=== PATIENT | female | born 1980 | race Caucasian/White ===

== ENCOUNTER 2016-08-07 16:51 | Emergency (ER) | payer BC ==
--- NOTE | 2016-08-07 17:57 | ER Document Report ---
ED Medical Screen (RME) - General Chief Complaint: Near Syncope Stated Complaint: HEART RATE PROBLEM Mode of Arrival: Ambulatory Information source: Patient Notes: Patient presents to the emergency department with reports of rapid heart rate feeling shaky and almost passing out for the past week. Patient is estimated due date is October 23. . TRAVEL OUTSIDE OF THE [place] IN LAST 30 DAYS: No - Related Data Allergies/Adverse Reactions: No Known Allergies Allergy (Unverified 08/07/16 17:56)
[2016-08-07 18:23] LABS: ABSOLUTE LYMPHOCYTES (AUTO) 1.8 10^3/uL (0.5-4.7); ABSOLUTE MONOCYTES (AUTO) 1.1 10^3/uL (0.1-1.4); ABSOLUTE NEUT (AUTO) 8.5 10^3/uL (1.7-8.2); BASOPHILS % (AUTO) 0.2 % (0-2); EOSINOPHILS % (AUTO) 0.3 % (0-6); HEMATOCRIT 34.3 % (36.0-47.0); HGB HCT DIFFERENCE -1.3; LYMPHOCYTES % (AUTO) 15.8 % (13-45); MEAN CORPUSCULAR HEMOGLOBIN 26.8 pg (27.0-33.4); MEAN CORPUSCULAR HGB CONC 32.1 g/dL (32.0-36.0); MEAN CORPUSCULAR VOLUME 84 fl (80-97); MONOCYTES % (AUTO) 9.9 % (3-13); RED CELL DISTRIBUTION WIDTH 12.7 % (11.5-14.0); SEGMENTED NEUTROPHILS % (AUTO) 73.8 % (42-78); WHITE BLOOD COUNT 11.5 10^3/uL (4.0-10.5)
[2016-08-07 18:28] LABS: APPEARANCE,URINE CLEAR; BILIRUBIN,URINE NEGATIVE (NEGATIVE); GLUCOSE, URINE NEGATIVE (NEGATIVE); KETONES,URINE NEGATIVE (NEGATIVE); LEUKOCYTE ESTERASE,URINE NEGATIVE (NEGATIVE); NITRITE,URINE NEGATIVE (NEGATIVE); PROTEIN,URINE NEGATIVE (NEGATIVE); URINE SPECIFIC GRAVITY 1.004; UROBILINOGEN,URINE NEGATIVE mg/dL (<2.0)
[2016-08-07 18:44] LABS: ALANINE AMINOTRANSFERASE 25 U/L (9-52); ALBUMIN 3.3 g/dL (3.5-5.0); ALKALINE PHOSPHATASE 64 U/L (38-126); ANION GAP 8 (5-19); ASPARTATE AMINO TRANSFERASE 22 U/L (14-36); BILIRUBIN,TOTAL 0.3 mg/dL (0.2-1.3); BLOOD UREA NITROGEN 9 mg/dL (7-20); CALCIUM 8.7 mg/dL (8.4-10.2); CARBON DIOXIDE 26 mmol/L (22-30); CHLORIDE 105 mmol/L (98-107); GLUCOSE 68 mg/dL (75-110); POTASSIUM 4.2 mmol/L (3.6-5.0); SODIUM 138.8 mmol/L (137-145); TOTAL PROTEIN 6.5 g/dL (6.3-8.2)
--- NOTE | 2016-08-07 21:02 | ER Document Report ---
ED General - General Chief Complaint: Near Syncope Stated Complaint: HEART RATE PROBLEM Time seen by provider: 21:00 Mode of Arrival: Ambulatory Notes: Patient is a 36-year-old female, at 29 weeks gestation, that comes emergency department for chief complaint of about one week of feeling shaky, feeling like her heart is racing, she states that she is eating all the time ( about every 1.5 hours) and states that if she does not need she feels like her blood sugar drops and she gets shaky. Patient denies any chest pain, shortness of breath, and tach but denies any other medications. TRAVEL OUTSIDE OF THE [place] IN LAST 30 DAYS: No - Related Data Allergies/Adverse Reactions: No Known Allergies Allergy (Unverified 08/07/16 17:56) Past Medical History - General Information source: Patient - Social History Smoking Status: Never Smoker Chew tobacco use (# tins/day): No Frequency of alcohol use: None Drug Abuse: None Family History: Reviewed & Not Pertinent Patient has suicidal ideation: No Patient has homicidal ideation: No Renal/ Medical History: Denies: Hx Peritoneal Dialysis Review of Systems - Review of Systems Constitutional: No symptoms reported EENT: No symptoms reported Cardiovascular: See HPI Respiratory: No symptoms reported Gastrointestinal: No symptoms reported Genitourinary: No symptoms reported Female Genitourinary: No symptoms reported Musculoskeletal: No symptoms reported Skin: No symptoms reported Hematologic/Lymphatic: No symptoms reported Neurological/Psychological: See HPI Physical Exam - Vital signs Vitals: Temp Pulse Resp BP Pulse Ox 98.3 F 114 H 18 102/62 100 08/07/16 17:56 08/07/16 17:56 08/07/16 17:56 08/07/16 17:56 08/07/16 17:56 Interpretation: Normal - General General appearance: Alert, Anxious In distress: None - patient's hands are slightly shaky, but otherwise no signs of distress noted - HEENT Head: Normocephalic, Atraumatic Eyes: Normal Eyelashes: Normal Pupils: PERRL Nasal: Normal Mouth/Lips: Normal Mucous membranes: Normal Pharynx: Normal Neck: Normal - Respiratory Respiratory status: No respiratory distress Chest status: Nontender Breath sounds: Normal. No: Decreased air movement, Wheezing Chest palpation: Normal - Cardiovascular Rhythm: Regular, Tachycardia Heart sounds: Normal auscultation, S1 appreciated, S2 appreciated Murmur: No - Abdominal Inspection: Normal Distension: No distension Bowel sounds: Normal Tenderness: Nontender. No: Tender Organomegaly: No organomegaly - Back Back: Normal, Nontender. No: Tender, CVA tenderness - Extremities General upper extremity: Normal inspection, Nontender, Normal color, Normal ROM , Normal temperature General lower extremity: Normal inspection, Nontender, Normal color, Normal ROM , Normal temperature, Normal weight bearing. 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 Initially patient was anxious and did appear to be shaking slightly, patient noted to be hypoglycemic , patient was given crackers and soda. Symptoms of shakiness and tachycardia resolved. Thyroid function tests are unremarkable, magnesium unremarkable, chemistry and CBC generally unremarkable. Discussed with patient, patient giving a copy of her thyroid functioning tests, a long discussion about patient' s blood glucose, patient states that she will keep a small amount of fluid with her at all times any more regularly in order to avoid hypoglycemia. Patient will follow closely with [facility] and return for any concerning or worsening symptoms. - Vital Signs Vital signs: Temp Pulse Resp BP Pulse Ox 98.2 F 93 14 119/61 98 08/07/16 22:33 08/07/16 22:33 08/07/16 22:33 08/07/16 22:33 08/07/16 22:33 - Laboratory Result Diagrams: 08/07/16 18:05 08/07/16 18:05 Laboratory results interpreted by me: 08/07/16 08/07/16 18:05 18:05 WBC 11.5 H Hgb 11.0 L Hct 34.3 L MCH 26.8 L Absolute Neutrophils 8.5 H Creatinine 0.50 L Glucose 68 L Albumin 3.3 L Discharge - Discharge Clinical Impression: Shakiness, Hypoglycemia, Rapid heart beat Condition: Stable Disposition: HOME, SELF-CARE Additional Instructions: Make sure you keep something to eat close by for when your blood sugar drops. No acute abnormality is noted on your workup today. Follow up with [facility] as planned. Return to emergency department for any concerning or worsening symptoms - chest pain, shortness of breath, passing out, etc. Referrals: MEKHI PIERCE MD [Primary Care Provider] - Follow up as needed
[2016-08-07 21:47] LABS: FREE T3 3.65 pg/mL (2.77-5.27)
[2016-08-07 22:00] LABS: THYROID STIMULATING HORMONE 2.93 uIU/mL (0.47-4.68)
[2016-08-07 22:50] VITALS: BP 119/61
--- NOTE | 2016-08-08 14:59 | EKG REPORT ---
SEVERITY:- BORDERLINE ECG - SINUS RHYTHM, SINUS ARRHYTHMIA : Confirmed by: Sandra Sutton 08-Aug-2016 14:58:48
== END 2016-08-07 22:50 | disposition home or self-care (01) ==
LOC: ER 16:51
DX: E16.2 Hypoglycemia, unspecified (principal); R25.1 Tremor, unspecified; R00.2 Palpitations; R42 Dizziness and giddiness; Z3A.29 29 weeks gestation of pregnancy
CPT/HCPCS: 36415; 80053; 81001; 82962; 83735; 84439; 84443; 84481; 85025; 93005; 93010; 99284

== ENCOUNTER 2016-09-11 11:49 | Outpatient (CLI) | payer BC ==
--- NOTE | 2016-09-11 12:00 | L&D Flow Sheet ---
LD Flowsheet Datetime Report Generated by CPN: 09/11/2016 12:00 Datetime: 09/11/2016 11:59 Vital Signs NBP Sys/Louise/Mean (mmHg): 123 (QS system process) : 63 (QS system process) : 85 (QS system process) Pulse: 81 (QS system process)
--- NOTE | 2016-09-11 13:30 | Non Stress Test Report ---
Non Stress Test Datetime Report Generated by CPN: 09/11/2016 13:30 DEMOGRAPHIC EGA NST: 34.0 INDICATION Indication for Study: Decreased Movement; Ordered by Provider Indication for Study (NST) Other: BPP-6/8 MONITORING Monitor Explained: Monitor Explained; Test Explained; Patient Verbalized Understanding Time on Monitor: 09/11/2016 12:00 Time off Monitor: 09/11/2016 13:08 NST Duration: 68 NST INTERVENTIONS NST Interventions: PO Hydration; Reposition Patient Physician Notified NST: DR LI REVIEWED STRIP BABY A: [id number] BABY A Movement : Present Contraction Frequency : 2-5 FHR Baseline : 125 Accelerations : 15X15 Decelerations : None Variability : Moderate 6-25bpm NST Review: Meets Criteria for Reactive NST NST Review and Verified By : KOKO CONNELL Results: Reactive NST REPORT Report Trigger: Send Report
== END 2016-09-11 13:14 | disposition home or self-care (01) ==
LOC: LC 11:49
PROVIDERS: ATTEND Obstetrics & Gynecology
PROC: 4A1HXCZ Monitoring of Products of Conception, Cardiac Rate, External Approach (ICD-10-PCS; principal; 2016-09-11)
DX: Z34.93 Encounter for supervision of normal pregnancy, unspecified, third trimester (principal); Z3A.34 34 weeks gestation of pregnancy
CPT/HCPCS: 59025

== ENCOUNTER 2016-10-01 18:09 | Outpatient (CLI) | payer BC ==
[2016-10-01] MEDS ORDERED: RINGERS SOLUTION,LACTATED 1,000 ML IV ONE (18:56)
[2016-10-01 19:08] LABS: AMORPHOUS SEDIMENT,URINE TRACE /HPF; APPEARANCE,URINE CLEAR; BILIRUBIN,URINE NEGATIVE (NEGATIVE); GLUCOSE, URINE NEGATIVE (NEGATIVE); KETONES,URINE NEGATIVE (NEGATIVE); LEUKOCYTE ESTERASE,URINE NEGATIVE (NEGATIVE); NITRITE,URINE NEGATIVE (NEGATIVE); PROTEIN,URINE NEGATIVE (NEGATIVE); URINE SPECIFIC GRAVITY 1.003; UROBILINOGEN,URINE NEGATIVE mg/dL (<2.0)
[2016-10-01 19:22] LABS: URINE BARBITURATES SCREEN NEGATIVE; URINE METHADONE SCREEN NEGATIVE; URINE OPIATES LOW NEGATIVE; URINE PHENCYCLIDINE SCREEN NEGATIVE
--- NOTE | 2016-10-01 20:00 | L&D Flow Sheet ---
LD Flowsheet Datetime Report Generated by CPN: 10/01/2016 20:00 Datetime: 10/01/2016 19:59 Vital Signs NBP Sys/Louise/Mean (mmHg): 120 (QS system process) : 75 (QS system process) : 93 (QS system process) Pulse: 83 (QS system process) LaborFlag: OB Triage (QS system process) Datetime: 10/01/2016 19:48 Monitor Interventions for FHR: Ultrasound Adjusted (Christy Lattibeaudeir, RN) Datetime: 10/01/2016 19:45 Monitor Interventions for FHR: Ultrasound Adjusted (Christy Lattibeaudeir, RN) Datetime: 10/01/2016 19:29 Vital Signs NBP Sys/Louise/Mean (mmHg): 130 (QS system process) : 73 (QS system process) : 92 (QS system process) Pulse: 97 (QS system process) LaborFlag: OB Triage (QS system process) Datetime: 10/01/2016 19:27 Communication Communication: Report Given to @ S Lattibeaudeir RN (Frank Mariposa, RN) Datetime: 10/01/2016 19:14 Vital Signs NBP Sys/Louise/Mean (mmHg): 123 (QS system process) : 80 (QS system process) : 95 (QS system process) Pulse: 88 (QS system process) LaborFlag: OB Triage (QS system process) Datetime: 10/01/2016 19:00 Respirations: 18 (Frank Mariposa, RN) Uterine Activity Monitor Mode: External; Palpation (Frank Mariposa, RN) Frequency (min): 1.5-3 (Frank Mariposa, RN) Quality: Mild/Moderate (Frank Mariposa, RN) Duration (sec): 50-90 (Frank Mariposa, RN) Duration Criteria: Less than Two 120 Second Contractions (Frank Mariposa, RN) Resting Tone (Palpate): Relaxed (Frank Mariposa, RN) Assessment A Monitor Mode: External US (Frank Mariposa, RN) FHR Baseline Rate : 130 (Frank Mariposa, RN) Variability: Moderate 6-25 bpm (Frank Mariposa, RN) Accelerations: 15X15 (Frank Mariposa, RN) Decelerations: None (Frank Mariposa, RN) Maternal Assessment Level of Consciousness: Fully Conscious (Frank Mariposa, RN) DTR's/Clonus: DTRs 2+; No Clonus (Frank Mariposa, RN) Headache: Frontal (Frank Hofleet, RN) Breath Sounds, Left: Clear and Equal (Frank Hofleet, RN) Breath Sounds, Right: Clear and Equal (Frank Hofleet, RN) Nausea/Vomiting: Denies (Frank Hofleet, RN) RUQ Epigastric Pain: Denies (Frank Hofleet, RN) Communication Communication: RN at Bedside; RN Reviewed Strip (Frank Howeeet, RN) LaborFlag: OB Triage (QS system process) Datetime: 10/01/2016 18:58 Vital Signs NBP Sys/Louise/Mean (mmHg): 138 (QS system process) : 62 (QS system process) : 89 (QS system process) Pulse: 102 (QS system process) LaborFlag: OB Triage (QS system process) Datetime: 10/01/2016 18:55 Temperature (F): 98.7 (Frank Monge RN) Temperature (C): 37.1 (QS system process) Patient Care IV/Blood Work: IV Started; IV Bolus Started (Frank Monge RN) Patient Care Comments: 18G L Forearm, good blood return, site wnl, IV infuses well. LR Bolus per Dr Bolivar order. (Frank Monge RN) LaborFlag: OB Triage (QS system process) Datetime: 10/01/2016 18:43 Vital Signs NBP Sys/Louise/Mean (mmHg): 130 (QS system process) : 91 (QS system process) : 105 (QS system process) Pulse: 113 (QS system process) Pain Pain Scale: 4 (Frank Monge RN) Pain Presence: Intermittent (Frank Monge RN) Pain Type: Contraction (Frank Monge RN) Pain Location: Abdomen (Frank Monge RN) Pain Relief Measures: Comfort Measures (Frank Monge RN) Pain Coping: Breathing Through Contractions (Frank Monge RN) Vaginal Exam Dilatation (cm): 1.0 (Frank Monge RN) Effacement (%): 20 (Frank Monge RN) Station: -3 (Frank Monge RN) Exam by: Kris Monge RN (Frank Monge RN) Vaginal Bleeding: None (Frank Monge RN) Cervix, Consistency: Firm (Frank Monge RN) Cervix, Position: Posterior (Frank Monge RN) Comfort Measures: Breathing/Relaxation; Family Support (Frank Monge RN) LaborFlag: OB Triage (QS system process) Datetime: 10/01/2016 18:28 I/O Interventions: Clear Liquids Given (Frank Monge RN) Patient Care Comments: Instructed to PO hydrate x1 pitcher of water. (Frank Monge RN) Datetime: 10/01/2016 18:27 Vital Signs NBP Sys/Louise/Mean (mmHg): 154 (QS system process) : 66 (QS system process) : 95 (QS system process) Pulse: 103 (QS system process) LaborFlag: OB Triage (QS system process)
[2016-10-01] MEDS ORDERED: PENICILLIN G-K 5 MILLION UNIT VIAL ONE (21:06)
[2016-10-01] MEDS ORDERED: PENICILLIN G POTASSIUM 5,000,000 UNIT in DEXTROSE 5%-WATER 100 ML IV ONE (21:34)
[2016-10-01] MEDS ORDERED: RINGERS SOLUTION,LACTATED 1,000 ML IV PRN (21:34)
--- NOTE | 2016-10-01 22:00 | L&D Flow Sheet ---
LD Flowsheet Datetime Report Generated by CPN: 10/01/2016 22:00 Datetime: 10/01/2016 21:43 NBP Sys/Louise/Mean (mmHg): 117 (QS system process) : 62 (QS system process) : 79 (QS system process) Pulse: 108 (QS system process) LaborFlag: OB Triage (QS system process) Datetime: 10/01/2016 21:28 NBP Sys/Louise/Mean (mmHg): 123 (QS system process) : 66 (QS system process) : 90 (QS system process) Pulse: 100 (QS system process) LaborFlag: OB Triage (QS system process) Datetime: 10/01/2016 21:24 Procedures: Consents Signed (Christy Lattibeaudeir, RN) Datetime: 10/01/2016 21:14 NBP Sys/Louise/Mean (mmHg): 139 (QS system process) : 56 (QS system process) : 80 (QS system process) Pulse: 101 (QS system process) LaborFlag: OB Triage (QS system process) Datetime: 10/01/2016 20:58 NBP Sys/Louise/Mean (mmHg): 122 (QS system process) : 80 (QS system process) : 93 (QS system process) Pulse: 104 (QS system process) LaborFlag: OB Triage (QS system process) Datetime: 10/01/2016 20:56 IV/Blood Work: IV Infusing per Order; New IV Bag Hung (Marjorie Mullen RN) Patient Care Comments: LR at 125ml/hr (Marjorie Mullen RN) Datetime: 10/01/2016 20:48 Dilatation (cm): 4.0 (Christy Chi RN) Effacement (%): 90 (Christy Chi RN) Station: 0 (Christy Chi RN) Exam by: Soheila Chi RN (Christy Chi RN) Cervix, Consistency: Soft (Christy hCi RN) Cervix, Position: Midposition (Christy Lattibeaudeir, RN) Datetime: 10/01/2016 20:42 NBP Sys/Louise/Mean (mmHg): 111 (QS system process) : 68 (QS system process) : 85 (QS system process) Pulse: 87 (QS system process) LaborFlag: OB Triage (QS system process) Datetime: 10/01/2016 20:29 NBP Sys/Louise/Mean (mmHg): 111 (QS system process) : 69 (QS system process) : 82 (QS system process) Pulse: 91 (QS system process) LaborFlag: OB Triage (QS system process) Datetime: 10/01/2016 20:14 NBP Sys/Louise/Mean (mmHg): 110 (QS system process) : 68 (QS system process) : 83 (QS system process) Pulse: 92 (QS system process) LaborFlag: OB Triage (QS system process) Datetime: 10/01/2016 20:06 Communication Comments: Informed Dr. Bolivar of SVE, contraction pattern, previous delivery history, and patient complaint. Received orders to re-check SVE 2 hours after previous check. (Christy Chi RN)
[2016-10-01 22:23] LABS: ABSOLUTE LYMPHOCYTES (AUTO) 2.1 10^3/uL (0.5-4.7); ABSOLUTE MONOCYTES (AUTO) 1.1 10^3/uL (0.1-1.4); ABSOLUTE NEUT (AUTO) 9.7 10^3/uL (1.7-8.2); BASOPHILS % (AUTO) 0.2 % (0-2); EOSINOPHILS % (AUTO) 0.1 % (0-6); HEMATOCRIT 33.5 % (36.0-47.0); HEMOGLOBIN 10.7 g/dL (12.0-15.5); HGB HCT DIFFERENCE -1.4; LYMPHOCYTES % (AUTO) 16.1 % (13-45); MEAN CORPUSCULAR HEMOGLOBIN 24.2 pg (27.0-33.4); MEAN CORPUSCULAR HGB CONC 31.9 g/dL (32.0-36.0); MEAN CORPUSCULAR VOLUME 76 fl (80-97); MONOCYTES % (AUTO) 8.3 % (3-13); RED BLOOD COUNT 4.42 10^6/uL (3.72-5.28); RED CELL DISTRIBUTION WIDTH 14.2 % (11.5-14.0); SEGMENTED NEUTROPHILS % (AUTO) 75.3 % (42-78); WHITE BLOOD COUNT 12.9 10^3/uL (4.0-10.5)
[2016-10-01 22:43] LABS: ALANINE AMINOTRANSFERASE 30 U/L (9-52); ALBUMIN 3.6 g/dL (3.5-5.0); ALKALINE PHOSPHATASE 116 U/L (38-126); ANION GAP 9 (5-19); ASPARTATE AMINO TRANSFERASE 24 U/L (14-36); BILIRUBIN,TOTAL 0.5 mg/dL (0.2-1.3); BLOOD UREA NITROGEN 7 mg/dL (7-20); CALCIUM 9.9 mg/dL (8.4-10.2); CARBON DIOXIDE 23 mmol/L (22-30); CHLORIDE 105 mmol/L (98-107); GLUCOSE 82 mg/dL (75-110); POTASSIUM 4.3 mmol/L (3.6-5.0); SODIUM 137.3 mmol/L (137-145); TOTAL PROTEIN 6.9 g/dL (6.3-8.2)
[2016-10-01 22:45] LABS: AMNISURE (ROM) NEGATIVE (NEGATIVE)
[2016-10-02] MEDS ORDERED: PENICILLIN G POTASSIUM 2,500,000 UNIT in DEXTROSE 5%-WATER 50 ML IV SCH (01:34)
[2016-10-02] MEDS ORDERED: PENICILLIN G-K 5 MILLION UNIT VIAL ONE (03:43)
[2016-10-02] MEDS ORDERED: ZOLPIDEM TARTRATE 5 MG TABLET ONE (04:56)
--- NOTE | 2016-10-02 04:58 | L&D Progress Notes ---
PROGRESS NOTES Datetime Report Generated by CPN: 10/02/2016 04:58 PROGRESS NOTE Impression Other: Latent labor Comment: Pt with h/o precipitous delivery last . Will give therapeutic rest in hospital...if no change after 4 hrs, plan d/c home. FETUS A FHR Category: Category I SIGNATURE SIGNATURE: [id number] SIGNATURE: [id number] Signature: with User ID: [email or web address]
--- NOTE | 2016-10-02 08:00 | L&D Flow Sheet ---
LD Flowsheet Datetime Report Generated by CPN: 10/02/2016 08:00 Datetime: 10/02/2016 04:50 Dilatation (cm): 2.5 (Christy Chi RN) Effacement (%): 50 (Christy Chi RN) Station: -3 (Christy Chi RN) Exam by: Dr. Bolivar (Christy Chi RN) Membrane Status: Intact (Christy Chi RN) Communication Comments: Dr. Bolivar discussed plan of care with patient. Patient concerned that if she takes ambien and goes home she will be brought back in an ambulance like she did with first baby and she would feel more comfortable taking the ambien and sleeping here for a few more hours. Received orders from Dr. Bolivar to give Ambien 5mg PO and have SVE re-checked at 0800. If no change pt is to be discharged. If cervical change present then will re-attach monitors and monitor labor. (Christy Chi RN) Datetime: 10/02/2016 04:48 I/O Interventions: Up to BR (Christy Chi RN) Patient Care Comments: Pt up to BR, Dr. Bolivar at to re-check SVE when back to bed. (Christy Chi RN) Datetime: 10/02/2016 04:15 Communication Comments: Dr. Bolivar called with update on patient's status. Informed Dr. Bolivar that pt was on birthing ball for approx 2 hours and then walked for about 30 mins. Informed provider that pt is not currently on monitor and had not changed her cervix as of just after midnight. Per Dr. Bolivar, pt can continue to rest off monitor at this time and she will re-check cervix shortly to decide if pt will be discharged or if labor is progressing. (Christy Chi RN) Datetime: 10/02/2016 03:59 Antibiotics: PCN 2.5 million units IVPB. (Christy Lattibeaudeir, RN) Datetime: 10/02/2016 02:29 Monitor Mode: External (Christy Lattibeaudeir, RN) Frequency (min): 3-7 (Christy Lattibeaudeir, RN) Quality: Moderate (Christy Lattibeaudeir, RN) Duration (sec): 60-90 (Christy Lattibeaudeir, RN) Resting Tone (Palpate): Relaxed (Christy Lattibeaudeir, RN) Monitor Mode: External US (Christy Lattibeaudeir, RN) FHR Baseline Rate : 125 (Christy Lattibeaudeir, RN) Variability: Moderate 6-25 bpm (Christy Lattibeaudeir, RN) Accelerations: 15X15 (Christy Lattibeaudeir, RN) Comments: monitors removed for ambulation. (Christy Lattibeaudeir, RN) Datetime: 10/02/2016 02:22 I/O Interventions: Up to BR (Christy Lattibeaudeir, RN) Datetime: 10/02/2016 02:00 Monitor Mode: External; Palpation (Christy Lattibeaudeir, RN) Quality: Moderate (Christy Lattibeaudeir, RN) Resting Tone (Palpate): Relaxed (Christy Lattibeaudeir, RN) Contraction Comments: unable to determine, monitors adjusted (Christy Lattibeaudeir, RN) Monitor Mode: External US (Christy Lattibeaudeir, RN) FHR Baseline Rate : 125 (Christy Lattibeaudeir, RN) Variability: Moderate 6-25 bpm (Christy Lattibeaudeir, RN) Accelerations: 15X15 (Christy Lattibeaudeir, RN) Datetime: 10/02/2016 01:32 Monitor Interventions for UA: [place] Adjusted (Christy Lattibeaudeir, RN) Datetime: 10/02/2016 01:30 Monitor Mode: External (Christy Lattibeaudeir, RN) Frequency (min): 2.5-5 (Christy Lattibeaudeir, RN) Quality: Moderate (Christy Lattibeaudeir, RN) Duration (sec): 50-80 (Christy Lattibeaudeir, RN) Resting Tone (Palpate): Relaxed (Christy Lattibeaudeir, RN) Monitor Mode: External US (Christy Lattibeaudeir, RN) FHR Baseline Rate : 125 (Christy Lattibeaudeir, RN) Variability: Moderate 6-25 bpm (Christy Lattibeaudeir, RN) Accelerations: 15X15 (Christy Lattibeaudeir, RN) Datetime: 10/02/2016 01:10 I/O Interventions: Up to BR (Christy Lattibeaudeir, RN) Datetime: 10/02/2016 01:00 Monitor Mode: External (Christy Lattibeaudeir, RN) Frequency (min): 3-5 (Christy Lattibeaudeir, RN) Quality: Moderate (Christy Lattibeaudeir, RN) Duration (sec): 60-80 (Christy Lattibeaudeir, RN) Resting Tone (Palpate): Relaxed (Christy Lattibeaudeir, RN) Monitor Mode: External US (Christy Lattibeaudeir, RN) FHR Baseline Rate : 125 (Christy Lattibeaudeir, RN) Variability: Moderate 6-25 bpm (Christy Lattibeaudeir, RN) Accelerations: 15X15 (Christy Lattibeaudeir, RN) Datetime: 10/02/2016 00:41 Communication Comments: Offered pt ambien and ambulation. Pt declines both but wants to rest and see if labor progresses. (Christy Lattibeaudeir, RN) Datetime: 10/02/2016 00:40 Dilatation (cm): 2.5 (Christy Lattibeaudeir, RN) Effacement (%): 50 (Christy Lattibeaudeir, RN) Station: -2 (Christy Lattibeaudeir, RN) Exam by: SMarcin Chi RN (Christy Lattibeaudeir, RN) Datetime: 10/02/2016 00:34 Patient Position/Activity: Semi-Fowlers (Christy Lattibeaudeir, RN) Datetime: 10/02/2016 00:30 Monitor Mode: External (Christy Lattibeaudeir, RN) Frequency (min): 2-5 (Christy Lattibeaudeir, RN) Quality: Moderate (Christy Lattibeaudeir, RN) Duration (sec): 60-80 (Christy Lattibeaudeir, RN) Resting Tone (Palpate): Relaxed (Christy Lattibeaudeir, RN) Monitor Mode: External US (Christy Lattibeaudeir, RN) FHR Baseline Rate : 135 (Christy Lattibeaudeir, RN) Variability: Moderate 6-25 bpm (Christy Lattibeaudeir, RN) Accelerations: 15X15 (Christy Lattibeaudeir, RN) Datetime: 10/02/2016 00:18 Monitor Interventions for FHR: Ultrasound Adjusted (Christy Lattibeaudeir, RN) Datetime: 10/02/2016 00:16 Comments: RN at bs, monitor tracing maternal HR. Pt sitting on birthing ball beside bed. (Christy Lattibeaudeir, RN) Datetime: 10/02/2016 00:00 Monitor Mode: External (Christy Lattibeaudeir, RN) Frequency (min): 3-4 (Christy Lattibeaudeir, RN) Quality: Moderate (Christy Lattibeaudeir, RN) Duration (sec): 60-80 (Christy Lattibeaudeir, RN) Resting Tone (Palpate): Relaxed (Christy Lattibeaudeir, RN) Monitor Mode: External US (Christy Lattibeaudeir, RN) FHR Baseline Rate : 125 (Christy Lattibeaudeir, RN) Variability: Moderate 6-25 bpm (Christy Lattibeaudeir, RN) Accelerations: 15X15 (Christy Lattibeaudeir, RN) Datetime: 10/01/2016 23:47 I/O Interventions: Up to BR (Christy Lattibeaudeir, RN) Datetime: 10/01/2016 23:30 Resting Tone (Palpate): Relaxed (Christy Lattibeaudeir, RN) Contraction Comments: unable to determine (Christy Lattibeaudeir, RN) Monitor Mode: External US (Christy Lattibeaudeir, RN) FHR Baseline Rate : 135 (Christy Lattibeaudeir, RN) Variability: Moderate 6-25 bpm (Christy Lattibeaudeir, RN) Accelerations: Prolonged (Christy Lattibeaudeir, RN) Datetime: 10/01/2016 23:13 Communication Comments: Informed Dr. Bolivar that Amnisure was negative. Advised that pt is currently on birthing ball beside bed. Per Dr. Bolivar continue to monitor patient. She may ambulate if desires. She may also have ambien and may rest on unit if desired. (Christy Lattibeaudeir, RN) Datetime: 10/01/2016 23:08 Patient Position/Activity: Birthing Ball (Christy Lattibeaudeir, RN) Datetime: 10/01/2016 23:00 Monitor Mode: External (Christy Lattibeaudeir, RN) Frequency (min): 2-4 (Christy Lattibeaudeir, RN) Quality: Moderate (Christy Lattibeaudeir, RN) Duration (sec): 60-80 (Christy Lattibeaudeir, RN) Resting Tone (Palpate): Relaxed (Christy Lattibeaudeir, RN) Monitor Mode: External US (Christy Lattibeaudeir, RN) FHR Baseline Rate : 125 (Christy Lattibeaudeir, RN) Variability: Moderate 6-25 bpm (Christy Lattibeaudeir, RN) Accelerations: 15X15 (Christy Lattibeaudeir, RN) Datetime: 10/01/2016 22:58 NBP Sys/Louise/Mean (mmHg): 117 (QS system process) : 69 (QS system process) : 88 (QS system process) Pulse: 114 (QS system process) LaborFlag: OB Triage (QS system process) Datetime: 10/01/2016 22:30 Monitor Mode: External (Christy Lattibeaudeir, RN) Frequency (min): 2-5 (Christy Lattibeaudeir, RN) Quality: Moderate (Christy Lattibeaudeir, RN) Duration (sec): 60-90 (Christy Lattibeaudeir, RN) Resting Tone (Palpate): Relaxed (Christy Lattibeaudeir, RN) Monitor Mode: External US (Christy Lattibeaudeir, RN) FHR Baseline Rate : 135 (Christy Lattibeaudeir, RN) Variability: Moderate 6-25 bpm (Christy Lattibeaudeir, RN) Accelerations: 15X15 (Christy Lattibeaudeir, RN) Datetime: 10/01/2016 22:28 NBP Sys/Louise/Mean (mmHg): 130 (QS system process) : 65 (QS system process) : 86 (QS system process) Pulse: 100 (QS system process) LaborFlag: OB Triage (QS system process) Datetime: 10/01/2016 22:23 Communication Comments: Informed Dr. Bolivar of difference in SVE exams and pt stating that she thinks her water broke. Informed provider that it is not obviously broken but SVE is drastically different. Received orders to do Amnisure. (Christy Chi RN) Datetime: 10/01/2016 22:15 Dilatation (cm): 2.5 (Christy Chi RN) Effacement (%): 50 (Christy Chi RN) Station: -2 (Christy Chi RN) Exam by: Soheila Chi RN (Christy Chi RN) Vaginal Exam Comments: Pt feels like her water may have broken. (Christy Chi RN) Datetime: 10/01/2016 22:11 I/O Interventions: Up to BR (Christy Lattibeaudeir, RN) Datetime: 10/01/2016 22:00 Monitor Mode: External (Christy Lattibeaudeir, RN) Frequency (min): 2-4 (Christy Lattibeaudeir, RN) Quality: Moderate (Christy Lattibeaudeir, RN) Duration (sec): 60-110 (Christy Lattibeaudeir, RN) Resting Tone (Palpate): Relaxed (Christy Lattibeaudeir, RN) Monitor Mode: External US (Christy Lattibeaudeir, RN) FHR Baseline Rate : 125 (Christy Lattibeaudeir, RN) Variability: Moderate 6-25 bpm (Christy Lattibeaudeir, RN) Accelerations: 15X15 (Christy Lattibeaudeir, RN)
--- NOTE | 2016-10-02 10:45 | L&D Flow Sheet ---
LD Flowsheet Datetime Report Generated by CPN: 10/02/2016 10:45 Datetime: 10/02/2016 08:41 Patient Care Comments: Pt ambulatory off unit in no distress (Frank Howeeet, RN) Datetime: 10/02/2016 08:27 NBP Sys/Louise/Mean (mmHg): 126 (QS system process) : 65 (QS system process) : 90 (QS system process) Pulse: 92 (QS system process) Respirations: 16 (Frank Sullivant, RN) Monitor Mode: External; Palpation (Frank Monge RN) Frequency (min): 4-7 (Frank Monge RN) Quality: Mild (Frank Monge RN) Duration (sec): 70-100 (Frank Monge RN) Duration Criteria: Less than Two 120 Second Contractions (Frank Monge RN) Pattern: Normal: <= 5 Contractions in 10 Minutes (Frank Monge RN) Resting Tone (Palpate): Relaxed (Frank Monge RN) Monitor Mode: External US (Frank Monge RN) FHR Baseline Rate : 135 (Frank Monge RN) Variability: Moderate 6-25 bpm (Frank Monge RN) Accelerations: 15X15 (Frank oMnge RN) Decelerations: None (Frank Monge RN) Level of Consciousness: Fully Conscious (Frank Monge RN) DTR's/Clonus: DTRs 2+; No Clonus (Frank Monge RN) Headache: Denies (Frank Monge RN) Breath Sounds, Left: Clear and Equal (Frank Monge RN) Breath Sounds, Right: Clear and Equal (Frank Monge RN) Nausea/Vomiting: Denies (Frank Monge RN) RUQ Epigastric Pain: Denies (Frank Monge RN) Patient Care Comments: IV discontinued; Site WNL (Frank Monge RN) Communication: RN at Bedside; RN Reviewed Strip (Frank Monge RN) LaborFlag: OB Triage (QS system process) Datetime: 10/02/2016 08:18 Pain Scale: 2 (Frank Monge RN) Pain Presence: Intermittent (Frank Monge RN) Pain Type: Contraction (Frank Monge RN) Pain Location: Abdomen (Frank Monge RN) Pain Relief Measures: Comfort Measures (Frank Monge RN) Pain Coping: Talking Through Contractions; Declines Medication or Epidural (Frank Monge RN) Comfort Measures: Breathing/Relaxation (Frank Monge RN) Strip Reviewed by: Ester Hardy CNM (Frank Monge RN) Notification Reason: Status Update; Status; Uterine Activity; Pain (Frank Moneg RN) Communication Comments: Ester Hardy CNM updated on pt; Notified of pt's ctx, ve, histroy, vs, pt states she wants to go home, reactive NST; Discharge orders obtained. (Frank Monge RN) LaborFlag: OB Triage (QS system process) Datetime: 10/02/2016 08:16 Dilatation (cm): 2.5 (Frank Monge RN) Effacement (%): 50 (Frank Monge RN) Station: -3 (Frank Monge RN) Exam by: Kris Monge RN (Frank Monge RN) Vaginal Bleeding: None (Frank Monge RN) Cervix, Consistency: Moderate (Frank Monge RN) Cervix, Position: Posterior (Frank Monge RN) Datetime: 10/02/2016 08:03 NBP Sys/Louise/Mean (mmHg): 115 (QS system process) : 71 (QS system process) : 89 (QS system process) Pulse: 112 (QS system process) LaborFlag: OB Triage (QS system process) Datetime: 10/02/2016 07:30 Level of Consciousness: Fully Conscious (Frank Mariposa, RN) Level of Consciousness: Fully Conscious (Frank Mariposa, RN) DTR's/Clonus: DTRs 2+; No Clonus (Frank Mariposa, RN) DTR's/Clonus: DTRs 2+; No Clonus (Frank Mariposa, RN) Headache: Denies (Frank Mariposa, RN) Headache: Denies (Frank Mariposa, RN) Breath Sounds, Left: Clear and Equal (Frank Mariposa, RN) Breath Sounds, Right: Clear and Equal (Frank Mariposa, RN) Nausea/Vomiting: Denies (Frank Mariposa, RN) RUQ Epigastric Pain: Denies (Frank Mariposa, RN) Datetime: 10/02/2016 04:50 Dilatation (cm): 2.5 (Christy Chi RN) Effacement (%): 50 (Christy Chi RN) Station: -3 (Christy Chi RN) Exam by: Dr. Bolivar (Christy Chi RN) Membrane Status: Intact (Christy Chi RN) Communication Comments: Dr. Bolivar discussed plan of care with patient. Patient concerned that if she takes ambien and goes home she will be brought back in an ambulance like she did with first baby and she would feel more comfortable taking the ambien and sleeping here for a few more hours. Received orders from Dr. Bolivar to give Ambien 5mg PO and have SVE re-checked at 0800. If no change pt is to be discharged. If cervical change present then will re-attach monitors and monitor labor. (Christy Chi RN) Datetime: 10/02/2016 04:48 I/O Interventions: Up to BR (Christy Chi RN) Patient Care Comments: Pt up to BR, Dr. Bolivar at to re-check SVE when back to bed. (Christy Chi RN) Datetime: 10/02/2016 04:15 Communication Comments: Dr. Bolivar called with update on patient's status. Informed Dr. Bolivar that pt was on birthing ball for approx 2 hours and then walked for about 30 mins. Informed provider that pt is not currently on monitor and had not changed her cervix as of just after midnight. Per Dr. Bolivar, pt can continue to rest off monitor at this time and she will re-check cervix shortly to decide if pt will be discharged or if labor is progressing. (Christy Chi RN) Datetime: 10/02/2016 03:59 Antibiotics: PCN 2.5 million units IVPB. (Christy Chi RN) Datetime: 10/02/2016 02:29 Monitor Mode: External (Christy Lattibeaudeir, RN) Frequency (min): 3-7 (Christy Lattibeaudeir, RN) Quality: Moderate (Christy Lattibeaudeir, RN) Duration (sec): 60-90 (Christy Lattibeaudeir, RN) Resting Tone (Palpate): Relaxed (Christy Lattibeaudeir, RN) Monitor Mode: External US (Christy Lattibeaudeir, RN) FHR Baseline Rate : 125 (Christy Lattibeaudeir, RN) Variability: Moderate 6-25 bpm (Christy Lattibeaudeir, RN) Accelerations: 15X15 (Christy Lattibeaudeir, RN) Comments: monitors removed for ambulation. (Christy Lattibeaudeir, RN) Datetime: 10/02/2016 02:22 I/O Interventions: Up to BR (Christy Lattibeaudeir, RN) Datetime: 10/02/2016 02:00 Monitor Mode: External; Palpation (Christy Lattibeaudeir, RN) Quality: Moderate (Christy Lattibeaudeir, RN) Resting Tone (Palpate): Relaxed (Christy Lattibeaudeir, RN) Contraction Comments: unable to determine, monitors adjusted (Christy Lattibeaudeir, RN) Monitor Mode: External US (Christy Lattibeaudeir, RN) FHR Baseline Rate : 125 (Christy Lattibeaudeir, RN) Variability: Moderate 6-25 bpm (Christy Lattibeaudeir, RN) Accelerations: 15X15 (Christy Lattibeaudeir, RN) Datetime: 10/02/2016 01:32 Monitor Interventions for UA: [place] Adjusted (Christy Lattibeaudeir, RN) Datetime: 10/02/2016 01:30 Monitor Mode: External (Christy Lattibeaudeir, RN) Frequency (min): 2.5-5 (Christy Lattibeaudeir, RN) Quality: Moderate (Christy Lattibeaudeir, RN) Duration (sec): 50-80 (Christy Lattibeaudeir, RN) Resting Tone (Palpate): Relaxed (Christy Lattibeaudeir, RN) Monitor Mode: External US (Christy Lattibeaudeir, RN) FHR Baseline Rate : 125 (Christy Lattibeaudeir, RN) Variability: Moderate 6-25 bpm (Christy Lattibeaudeir, RN) Accelerations: 15X15 (Christy Lattibeaudeir, RN) Datetime: 10/02/2016 01:10 I/O Interventions: Up to BR (Christy Lattibeaudeir, RN) Datetime: 10/02/2016 01:00 Monitor Mode: External (Christy Lattibeaudeir, RN) Frequency (min): 3-5 (Christy Lattibeaudeir, RN) Quality: Moderate (Christy Lattibeaudeir, RN) Duration (sec): 60-80 (Christy Lattibeaudeir, RN) Resting Tone (Palpate): Relaxed (Christy Lattibeaudeir, RN) Monitor Mode: External US (Christy Lattibeaudeir, RN) FHR Baseline Rate : 125 (Christy Lattibeaudeir, RN) Variability: Moderate 6-25 bpm (Christy Lattibeaudeir, RN) Accelerations: 15X15 (Christy Lattibeaudeir, RN) Datetime: 10/02/2016 00:41 Communication Comments: Offered pt ambien and ambulation. Pt declines both but wants to rest and see if labor progresses. (Christy Lattibeabaljinder, RN) Datetime: 10/02/2016 00:40 Dilatation (cm): 2.5 (Christy Lattibeavaishaliir, RN) Effacement (%): 50 (Christy Chi, RN) Station: -2 (Christy Lattibeaudeir, RN) Exam by: S. Lattibeaudelenora RN (Christy Lattibeaudeir, RN) Datetime: 10/02/2016 00:34 Patient Position/Activity: Semi-Fowlers (Christy Lattibeaudeir, RN) Datetime: 10/02/2016 00:30 Monitor Mode: External (Christy Lattibeaudeir, RN) Frequency (min): 2-5 (Christy Lattibeaudeir, RN) Quality: Moderate (Christy Lattibeaudeir, RN) Duration (sec): 60-80 (Christy Lattibeaudeir, RN) Resting Tone (Palpate): Relaxed (Christy Lattibeaudeir, RN) Monitor Mode: External US (Christy Lattibeaudeir, RN) FHR Baseline Rate : 135 (Christy Lattibeaudeir, RN) Variability: Moderate 6-25 bpm (Christy Lattibeaudeir, RN) Accelerations: 15X15 (Christy Lattibeaudeir, RN) Datetime: 10/02/2016 00:18 Monitor Interventions for FHR: Ultrasound Adjusted (Christy Lattibeaudeir, RN) Datetime: 10/02/2016 00:16 Comments: RN at bs, monitor tracing maternal HR. Pt sitting on birthing ball beside bed. (Christy Lattibeaudeir, RN) Datetime: 10/02/2016 00:00 Monitor Mode: External (Christy Lattibeaudeir, RN) Frequency (min): 3-4 (Christy Lattibeaudeir, RN) Quality: Moderate (Christy Lattibeaudeir, RN) Duration (sec): 60-80 (Christy Lattibeaudeir, RN) Resting Tone (Palpate): Relaxed (Christy Lattibeaudeir, RN) Monitor Mode: External US (Christy Lattibeaudeir, RN) FHR Baseline Rate : 125 (Christy Lattibeaudeir, RN) Variability: Moderate 6-25 bpm (Christy Lattibeaudeir, RN) Accelerations: 15X15 (Christy Lattibeaudeir, RN) Datetime: 10/01/2016 23:47 I/O Interventions: Up to BR (Christy Lattibeaudeir, RN) Datetime: 10/01/2016 23:30 Resting Tone (Palpate): Relaxed (Christy Lattibeaudeir, RN) Contraction Comments: unable to determine (Christy Lattibeaudeir, RN) Monitor Mode: External US (Christy Lattibeaudeir, RN) FHR Baseline Rate : 135 (Christy Lattibeaudeir, RN) Variability: Moderate 6-25 bpm (Christy Lattibeaudeir, RN) Accelerations: Prolonged (Christy Lattibeaudeir, RN) Datetime: 10/01/2016 23:13 Communication Comments: Informed Dr. Bolivar that Amnisure was negative. Advised that pt is currently on birthing ball beside bed. Per Dr. Bolivar continue to monitor patient. She may ambulate if desires. She may also have ambien and may rest on unit if desired. (Christy Lattibeaudeir, RN) Datetime: 10/01/2016 23:08 Patient Position/Activity: Birthing Ball (Christy Lattibeaudeir, RN) Datetime: 10/01/2016 23:00 Monitor Mode: External (Christy Lattibeaudeir, RN) Frequency (min): 2-4 (Christy Lattibeaudeir, RN) Quality: Moderate (Christy Lattibeaudeir, RN) Duration (sec): 60-80 (Christy Lattibeaudeir, RN) Resting Tone (Palpate): Relaxed (Christy Lattibeaudeir, RN) Monitor Mode: External US (Christy Lattibeaudeir, RN) FHR Baseline Rate : 125 (Christy Lattibeaudeir, RN) Variability: Moderate 6-25 bpm (Christy Lattibeaudeir, RN) Accelerations: 15X15 (Christy Lattibeaudeir, RN) Datetime: 10/01/2016 22:58 NBP Sys/Louise/Mean (mmHg): 117 (QS system process) : 69 (QS system process) : 88 (QS system process) Pulse: 114 (QS system process) LaborFlag: OB Triage (QS system process)
--- NOTE | 2016-10-02 10:45 | L&D Admission Assessment ---
LD ADM ASMT Datetime Report Generated by CPN: 10/02/2016 10:45 PATIENT ASSESSMENT Assessment Type: Ongoing Assessment (10/02/2016 07:30:Frank Hofleet, RN) WEIGHT Weight (lb): 163 (10/01/2016 22:09:QS system process) Weight (lb): 163 (10/01/2016 21:08:QS system process) Weight (lb): 163 (10/01/2016 18:22:QS system process) Weight (kg): 74.1 (10/01/2016 22:09:QS system process) Weight (kg): 74.1 (10/01/2016 21:08:QS system process) Weight (kg): 74.1 (10/01/2016 18:22:QS system process) BMI: 24.8 (10/01/2016 22:09:QS system process) BMI: 24.8 (10/01/2016 21:08:QS system process) PAIN Pain Scale: 2 (10/02/2016 08:18:Frank Monge RN) Pain Scale: 4 (10/01/2016 18:43:Frank Monge RN) Pain Presence: Intermittent (10/02/2016 08:18:Frank Monge RN) Pain Presence: Intermittent (10/01/2016 18:43:Frank Monge RN) Pain Type: Contraction (10/02/2016 08:18:Frank Monge RN) Pain Type: Contraction (10/01/2016 18:43:Frank Monge RN) Pain Location: Abdomen (10/02/2016 08:18:Frank Monge RN) Pain Location: Abdomen (10/01/2016 18:43:Frank Monge RN) CONTRACTIONS Frequency (min): 4-7 (10/02/2016 08:27:Frank Mariposa, RN) Frequency (min): 3-7 (10/02/2016 02:29:Christy Lattibeaudeir, RN) Frequency (min): 2.5-5 (10/02/2016 01:30:Christy Lattibeaudeir, RN) Frequency (min): 3-5 (10/02/2016 01:00:Christy Lattibeaudeir, RN) Frequency (min): 2-5 (10/02/2016 00:30:Christy Lattibeaudeir, RN) Frequency (min): 3-4 (10/02/2016 00:00:Christy Lattibeaudeir, RN) Frequency (min): 2-4 (10/01/2016 23:00:Christy Lattibeaudeir, RN) Frequency (min): 2-5 (10/01/2016 22:30:Christy Lattibeaudeir, RN) Frequency (min): 2-4 (10/01/2016 22:00:Christy Lattibeaudeir, RN) Frequency (min): 2-3 (10/01/2016 21:30:Christy Lattibeaudeir, RN) Frequency (min): 2-3 (10/01/2016 21:00:Christy Lattibeaudeir, RN) Frequency (min): 2-4 (10/01/2016 20:30:Christy Lattibeaudeir, RN) Frequency (min): 2-5 (10/01/2016 20:00:Christy Lattibeaudeir, RN) Frequency (min): 2.5-3 (10/01/2016 19:30:Christy Lattibeaudeir, RN) Frequency (min): 1.5-3 (10/01/2016 19:00:Frank Mariposa, RN) Duration (sec): 70-100 (10/02/2016 08:27:Franknicolasa HoMariposa, RN) Duration (sec): 60-90 (10/02/2016 02:29:Christy Lattibeaudeir, RN) Duration (sec): 50-80 (10/02/2016 01:30:Christy Lattibeaudeir, RN) Duration (sec): 60-80 (10/02/2016 01:00:Christy Lattibeaudeir, RN) Duration (sec): 60-80 (10/02/2016 00:30:Christy Lattibeaudeir, RN) Duration (sec): 60-80 (10/02/2016 00:00:Christy Lattibeaudeir, RN) Duration (sec): 60-80 (10/01/2016 23:00:Christy Lattibeaudeir, RN) Duration (sec): 60-90 (10/01/2016 22:30:Christy Lattibeaudeir, RN) Duration (sec): 60-110 (10/01/2016 22:00:Christy Lattibeaudeir, RN) Duration (sec): 50-80 (10/01/2016 21:30:Christy Lattibeaudeir, RN) Duration (sec): 40-80 (10/01/2016 21:00:Christy Lattibeaudeir, RN) Duration (sec): 60-80 (10/01/2016 20:30:Christy Lattibeaudeir, RN) Duration (sec): 60-80 (10/01/2016 20:00:Christy Lattibeaudeir, RN) Duration (sec): 40-70 (10/01/2016 19:30:Christy Lattibeaudeir, RN) Duration (sec): 50-90 (10/01/2016 19:00:Frank Monge RN) Quality: Mild (10/02/2016 08:27:Frank Monge RN) Quality: Moderate (10/02/2016 02:29:Christy Chi, RN) Quality: Moderate (10/02/2016 02:00:Christy Lattibsumanir, RN) Quality: Moderate (10/02/2016 01:30:Christy Lattibsumanir, RN) Quality: Moderate (10/02/2016 01:00:Christy Lattibeaudeir, RN) Quality: Moderate (10/02/2016 00:30:Christy Lattibsumanir, RN) Quality: Moderate (10/02/2016 00:00:Christy Chi, RN) Quality: Moderate (10/01/2016 23:00:Christy Lattibeaudeir, RN) Quality: Moderate (10/01/2016 22:30:Christy Lattibsumanir, RN) Quality: Moderate (10/01/2016 22:00:Christy Lattibsumanir, RN) Quality: Moderate (10/01/2016 21:30:Christy Lattibeaudeir, RN) Quality: Moderate (10/01/2016 21:00:Christy Lattibsumanir, RN) Quality: Moderate (10/01/2016 20:30:Christy Lattibeaudeir, RN) Quality: Moderate (10/01/2016 20:00:Christy Lattibsumanir, RN) Quality: Moderate (10/01/2016 19:30:Christy Chi, RN) Quality: Mild/Moderate (10/01/2016 19:00:Frank Monge RN) Pattern: Normal: <= 5 Contractions in 10 Minutes (10/02/2016 08:27:Frank Monge RN) Resting Tone [place]: Relaxed (10/02/2016 08:27:Frank Monge RN) Resting Tone [place]: Relaxed (10/02/2016 02:29:Christy Chi, RN) Resting Tone [place]: Relaxed (10/02/2016 02:00:Christy Lattibkamila, RN) Resting Tone [place]: Relaxed (10/02/2016 01:30:Christy Lattibeaudeir, RN) Resting Tone [place]: Relaxed (10/02/2016 01:00:Christy Lattibkamila, RN) Resting Tone [place]: Relaxed (10/02/2016 00:30:Christy Lattibeaudeir, RN) Resting Tone [place]: Relaxed (10/02/2016 00:00:Christy Lattibeaudeir, RN) Resting Tone [place]: Relaxed (10/01/2016 23:30:Christy Lattibsumanir, RN) Resting Tone [place]: Relaxed (10/01/2016 23:00:Christy Chi RN) Resting Tone [place]: Relaxed (10/01/2016 22:30:Christy Chi RN) Resting Tone [place]: Relaxed (10/01/2016 22:00:Christy Chi RN) Resting Tone [place]: Relaxed (10/01/2016 21:30:Christy Chi RN) Resting Tone [place]: Relaxed (10/01/2016 21:00:Christy Chi RN) Resting Tone [place]: Relaxed (10/01/2016 20:30:Christy Chi RN) Resting Tone [place]: Relaxed (10/01/2016 20:00:Christy Chi RN) Resting Tone [place]: Relaxed (10/01/2016 19:30:Christy Chi RN) Resting Tone [place]: Relaxed (10/01/2016 19:00:Frank Monge RN) Contraction Comments: unable to determine, monitors adjusted (10/02/2016 02:00:Christy Chi RN) Contraction Comments: unable to determine (10/01/2016 23:30:Christy Chi RN) VAGINAL EXAM Dilatation (cm): 2.5 (10/02/2016 08:16:Frank Monge RN) Dilatation (cm): 2.5 (10/02/2016 04:50:Christy Chi RN) Dilatation (cm): 2.5 (10/02/2016 00:40:Christy Chi RN) Dilatation (cm): 2.5 (10/01/2016 22:15:Christy Chi RN) Dilatation (cm): 4.0 (10/01/2016 20:48:Christy Chi RN) Dilatation (cm): 1.0 (10/01/2016 18:43:Frank Monge RN) Effacement (%): 50 (10/02/2016 08:16:Frank Monge RN) Effacement (%): 50 (10/02/2016 04:50:Christy Chi RN) Effacement (%): 50 (10/02/2016 00:40:Christy Chi RN) Effacement (%): 50 (10/01/2016 22:15:Christy Chi RN) Effacement (%): 90 (10/01/2016 20:48:Christy Chi RN) Effacement (%): 20 (10/01/2016 18:43:Frank Monge RN) Station: -3 (10/02/2016 08:16:Frank Monge RN) Station: -3 (10/02/2016 04:50:Christy Chi RN) Station: -2 (10/02/2016 00:40:Christy Chi RN) Station: -2 (10/01/2016 22:15:Christy Chi RN) Station: 0 (10/01/2016 20:48:Christy Chi RN) Station: -3 (10/01/2016 18:43:Frank Monge RN) Membranes Status: Intact (10/02/2016 04:50:Christy Chi RN) NEURO Level of Consciousness: Fully Conscious (10/02/2016 08:27:Frank Howeeet, RN) Level of Consciousness: Fully Conscious (10/02/2016 07:30:Frank Mariposa, RN) Level of Consciousness: Fully Conscious (10/02/2016 07:30:Frank Mariposa, RN) Level of Consciousness: Fully Conscious (10/01/2016 19:00:Frank Mariposa, RN) DTR's/Clonus: DTRs 2+; No Clonus (10/02/2016 08:27:Frank Howeeet, RN) DTR's/Clonus: DTRs 2+; No Clonus (10/02/2016 07:30:Frank Mariposa, RN) DTR's/Clonus: DTRs 2+; No Clonus (10/02/2016 07:30:Frank Howeeet, RN) DTR's/Clonus: DTRs 2+; No Clonus (10/01/2016 19:00:Frank Howeeet, RN) Headache: Denies (10/02/2016 08:27:Frank Howeeet, RN) Headache: Denies (10/02/2016 07:30:Frank Howeeet, RN) Headache: Denies (10/02/2016 07:30:Frank Howeeet, RN) Headache: Frontal (10/01/2016 19:00:Frank Sullivant, RN) Dizziness: No (10/02/2016 07:30:Frank Howeeet, RN) Dizziness: No (10/02/2016 07:30:Frank Howeeet, RN) Blurred Vision: No (10/02/2016 07:30:Frank Howeeet, RN) Blurred Vision: No (10/02/2016 07:30:Frank Howeeet, RN) Extremity Numbness/Tingling : None (10/02/2016 07:30:Frank Sullivant, RN) Extremity Numbness/Tingling : None (10/02/2016 07:30:Frank Moneg RN) Extremity Movement: Full Range of Motion (10/02/2016 07:30:Frank Monge RN) Extremity Movement: Full Range of Motion (10/02/2016 07:30:Frank Monge RN) CARDIOVASCULAR Heart Rhythm: Regular (10/02/2016 07:30:Frank Monge RN) Nailbeds: [place] (10/02/2016 07:30:Frank Monge RN) Nailbeds: [place] (10/02/2016 07:30:Frank Monge RN) Capillary Refill: Less than 3 Seconds (10/02/2016 07:30:Frank Monge RN) Capillary Refill: Less than 3 Seconds (10/02/2016 07:30:Frank Monge RN) Lower Extremities Edema: None (10/02/2016 07:30:Frank Monge RN) Lower Extremities Edema Degree: None (10/02/2016 07:30:Frank Monge RN) Upper Extremities Edema: None (10/02/2016 07:30:Frank Monge RN) Upper Extremities Edema Degree: None (10/02/2016 07:30:Frank Monge RN) Facial Edema: None (10/02/2016 07:30:Frank Monge RN) Facial Edema: None (10/02/2016 07:30:Frank Monge RN) Jose D's Sign Left Leg: Negative (10/02/2016 07:30:Frank Monge RN) Jose D's Sign Left Leg: Negative (10/02/2016 07:30:Frank Mariposa, RN) Jose D's Sign Right Leg: Negative (10/02/2016 07:30:Frank Mariposa, RN) RESPIRATORY Respiratory Effort: Unlabored; Regular Rhythm; Equal Expansion (10/02/2016 07:30:Frank Mariposa, RN) Breath Sounds, Left: Clear and Equal (10/02/2016 08:27:Frank Mariposa, RN) Breath Sounds, Left: Clear and Equal (10/02/2016 07:30:Frank Mariposa, RN) Breath Sounds, Left: Clear and Equal (10/01/2016 19:00:Frank Mariposa, RN) Breath Sounds, Right: Clear and Equal (10/02/2016 08:27:Frank Mariposa, RN) Breath Sounds, Right: Clear and Equal (10/02/2016 07:30:Frank Mariposa, RN) Breath Sounds, Right: Clear and Equal (10/01/2016 19:00:Frank Mariposa, RN) Cough Productivity: None (10/02/2016 07:30:Frank Mariposa, RN) GASTROINTESTINAL Nausea/Vomiting: Denies (10/02/2016 08:27:Frank Mariposa, RN) Nausea/Vomiting: Denies (10/02/2016 07:30:Frank Mariposa, RN) Nausea/Vomiting: Denies (10/01/2016 19:00:Frank Mariposa, RN) Bowel Sounds: Normoactive; All Quadrants (10/02/2016 07:30:Frank Mariposa, RN) RUQ Epigastric Pain: Denies (10/02/2016 08:27:Frank Maripsoa, RN) RUQ Epigastric Pain: Denies (10/02/2016 07:30:Frank Mariposa, RN) RUQ Epigastric Pain: Denies (10/01/2016 19:00:Frank Mariposa, RN) GENITOURINARY Bladder: Nondistended (10/02/2016 07:30:Frank Mariposa, RN) Frequency of Urination: No (10/02/2016 07:30:Frank Mariposa, RN) Urination Burning: No (10/02/2016 07:30:Frank Mariposa, RN) CVA Tenderness: No (10/02/2016 07:30:Frank Mariposa, RN) Vaginal Discharge Color: N/A (10/02/2016 07:30:Frank Mariposa, RN) INTEGUMENTARY Skin Color: Normal for Race (10/02/2016 07:30:Frank Monge RN) Skin Temperature: Warm (10/02/2016 07:30:Frank Monge RN) Skin Moisture: Dry (10/02/2016 07:30:Frank Monge RN) ABDULKADIR SKIN ASSESSMENT Abdulkadir Scale Sensory Perception: No Impairment- Responds to verbal commands. Has no sensory deficit which would limit ability to feel or voice pain or discomfort (10/02/2016 07:30:Frank Monge RN) Abdulkadir Scale Moisture: Rarely Moist- Skin is usually dry. Linen only requires changing at routine intervals (10/02/2016 07:30:Frank Monge RN) Abdulkadir Scale Activity: Walks Frequently- Walks outside the room at least twice a day and inside room at least every 2 hours during the day. (10/02/2016 07:30:Frank Monge RN) Abdulkadir Scale Mobility: No Limitations- Makes major and frequent changes in position without assistance (10/02/2016 07:30:Frank Monge RN) Abdulkadir Scale Nutrition: Excellent- Eats most of every meal. Never refuses a meal. Usually eats a total of 4 or more servings of meat and dairy products. Occasionally eats between meals. Does not require supplementation (10/02/2016 07:30:Frank Monge RN) Abdulkadir Scale Friction and Shear: No Apparent Problem- Moves in bed and in chair independently and has sufficient muscle strength to lift up completely during move. Maintains good position in bed or chair at all times (10/02/2016 07:30:Frank Monge RN) Abdulkadir Scale Total: 23 (10/02/2016 07:30:QS system process) Abdulkadir Scale Risk: No Risk of Pressure Ulcer Noted at this Time (10/02/2016 07:30:QS system process) SAFETY Call [place] Within Reach: Yes (10/02/2016 07:30:Frank Monge RN) Side Rails Up: Yes (10/02/2016 07:30:Frank Monge RN) Bed Wheels Locked: Yes (10/02/2016 07:30:Frank Monge RN) Arm Bands Present: Yes (10/02/2016 07:30:Frank Monge RN) FALL SCREEN Fall Risk History of Falling: (0) No (10/02/2016 07:30:Frank Monge RN) Fall Risk Secondary Diagnosis: (0) No (10/02/2016 07:30:Frank Monge RN) Fall Risk Ambulatory Aid: (0) None/Bedrest/Wheelchair/Nurse Assist (10/02/2016 07:30:Frank Monge RN) Fall Risk IV Therapy: (0) No (10/02/2016 07:30:Frank Monge RN) Fall Risk Gait: (0) Normal/Bedrest/Immobile (10/02/2016 07:30:Frank Monge RN) Fall Risk Mental Status: (0) Oriented to Own Ability (10/02/2016 07:30:Frank Monge RN) Fall Risk Score: 0 (10/02/2016 07:30:QS system process) Fall Risk Score Definition: No Risk: No action required (10/02/2016 07:30:QS system process) BABY A FHR Baseline Rate (bpm) Baby A: 135 (10/02/2016 08:27:Frank Monge RN) FHR Baseline Rate (bpm) Baby A: 125 (10/02/2016 02:29:Christy Chi RN) FHR Baseline Rate (bpm) Baby A: 125 (10/02/2016 02:00:Christy Chi RN) FHR Baseline Rate (bpm) Baby A: 125 (10/02/2016 01:30:Christy Chi RN) FHR Baseline Rate (bpm) Baby A: 125 (10/02/2016 01:00:Christy Chi RN) FHR Baseline Rate (bpm) Baby A: 135 (10/02/2016 00:30:Christy Chi RN) FHR Baseline Rate (bpm) Baby A: 125 (10/02/2016 00:00:Christy Chi RN) FHR Baseline Rate (bpm) Baby A: 135 (10/01/2016 23:30:Christy Chi RN) FHR Baseline Rate (bpm) Baby A: 125 (10/01/2016 23:00:Christy Chi RN) FHR Baseline Rate (bpm) Baby A: 135 (10/01/2016 22:30:Christy Chi RN) FHR Baseline Rate (bpm) Baby A: 125 (10/01/2016 22:00:Christy Chi RN) FHR Baseline Rate (bpm) Baby A: 125 (10/01/2016 21:30:Christy Chi RN) FHR Baseline Rate (bpm) Baby A: 135 (10/01/2016 21:00:Christy Chi RN) FHR Baseline Rate (bpm) Baby A: 130 (10/01/2016 20:30:Christy Chi RN) FHR Baseline Rate (bpm) Baby A: 130 (10/01/2016 20:00:Christy Chi RN) FHR Baseline Rate (bpm) Baby A: 125 (10/01/2016 19:30:Christy Chi RN) FHR Baseline Rate (bpm) Baby A: 130 (10/01/2016 19:00:Frank Monge RN) Variability Baby A: Moderate 6-25 bpm (10/02/2016 08:27:Frank Monge RN) Variability Baby A: Moderate 6-25 bpm (10/02/2016 02:29:Christy Chi RN) Variability Baby A: Moderate 6-25 bpm (10/02/2016 02:00:Christy Chi RN) Variability Baby A: Moderate 6-25 bpm (10/02/2016 01:30:Christy Lattibeaudeir, RN) Variability Baby A: Moderate 6-25 bpm (10/02/2016 01:00:Christy Lattibeaudeir, RN) Variability Baby A: Moderate 6-25 bpm (10/02/2016 00:30:Christy Lattibeaudeir, RN) Variability Baby A: Moderate 6-25 bpm (10/02/2016 00:00:Christy Lattibeaudeir, RN) Variability Baby A: Moderate 6-25 bpm (10/01/2016 23:30:Christy Lattibeaudeir, RN) Variability Baby A: Moderate 6-25 bpm (10/01/2016 23:00:Christy Lattibeaudeir, RN) Variability Baby A: Moderate 6-25 bpm (10/01/2016 22:30:Christy Lattibeaudeir, RN) Variability Baby A: Moderate 6-25 bpm (10/01/2016 22:00:Christy Lattibeaudeir, RN) Variability Baby A: Moderate 6-25 bpm (10/01/2016 21:30:Christy Lattibeaudeir, RN) Variability Baby A: Moderate 6-25 bpm (10/01/2016 21:00:Christy Lattibeaudeir, RN) Variability Baby A: Moderate 6-25 bpm (10/01/2016 20:30:Christy Lattibeaudeir, RN) Variability Baby A: Moderate 6-25 bpm (10/01/2016 20:00:Christy Lattibeaudeir, RN) Variability Baby A: Moderate 6-25 bpm (10/01/2016 19:30:Christy Lattibeaudeir, RN) Variability Baby A: Moderate 6-25 bpm (10/01/2016 19:00:Frank Monge RN) Accelerations Baby A: 15X15 (10/02/2016 08:27:Frank Monge RN) Accelerations Baby A: 15X15 (10/02/2016 02:29:Christyyehuda Chi, RN) Accelerations Baby A: 15X15 (10/02/2016 02:00:Christyyehuda Chi, RN) Accelerations Baby A: 15X15 (10/02/2016 01:30:Christy Chi RN) Accelerations Baby A: 15X15 (10/02/2016 01:00:Christy Chi RN) Accelerations Baby A: 15X15 (10/02/2016 00:30:Christy Chi RN) Accelerations Baby A: 15X15 (10/02/2016 00:00:Christy Chi RN) Accelerations Baby A: Prolonged (10/01/2016 23:30:Christy Chi RN) Accelerations Baby A: 15X15 (10/01/2016 23:00:Christy Chi RN) Accelerations Baby A: 15X15 (10/01/2016 22:30:Christy Chi RN) Accelerations Baby A: 15X15 (10/01/2016 22:00:Christy Chi RN) Accelerations Baby A: 15X15 (10/01/2016 21:30:Christy Chi RN) Accelerations Baby A: 15X15 (10/01/2016 21:00:Christy Chi RN) Accelerations Baby A: 15X15 (10/01/2016 20:30:Christy Chi RN) Accelerations Baby A: 15X15 (10/01/2016 20:00:Christy Chi RN) Accelerations Baby A: 15X15 (10/01/2016 19:30:Christy Chi RN) Accelerations Baby A: 15X15 (10/01/2016 19:00:Frank Monge RN) Decelerations Baby A: None (10/02/2016 08:27:Frank Monge RN) Decelerations Baby A: None (10/01/2016 19:00:Frank Monge RN)
--- NOTE | 2016-10-02 10:45 | L&D Discharge Summary ---
OB Discharge Summary Datetime Report Generated by CPN: 10/02/2016 10:45 DISCHARGE DIAGNOSIS Diagnosis/Symptoms: False Labor Diagnoses/Symptoms Other: REACTIVE NST, FM PRESENT; NOT IN LABOR Gestation: 36.6 Number of Babies in Womb: 1 Parity: 1 DIET/ACTIVITY/RESTRICTIONS Diet: Regular Activity: Normal Activity Activity Restrictions: No Sexual Activity; Nothing in Vagina - [place], Tampons, Douche TEACHING/INSTRUCTIONS/REFERRALS Instructions Given To: PT Instructions Understood: Patient Verbalized Understanding; Support Person Verbalized Understanding Referrals: None Educational Materials- Other: Labor Signs Kick Counts DISCHARGE INFORMATION Discharged AMA: No Discharge Date/Time: 10/02/2016 08:40 Discharged To: Home Discharge Provider Name: HAMMAD CNM Accompanied By: Discharge Method: Ambulatory Condition: Stable FOLLOW UP INFORMATION Follow Up With: [facility] Follow Up On: As Scheduled Follow Up Phone Number: [facility] - Comments: economic development manager agrees with discharge, pt agrees with discharge. Pt d/c home for False labor, Pt understands s/s to report, when to return to hospital for evaluation, to keep scheduled appointments with [facility]. Discharged in no distress, no complaints, ambulates without difficulty. GENERAL INSTR-CALL PROVIDER IF: Contractions: Contractions or cramps become more frequent than 8 in one hour or 4 in 20 minutes; Regular painful contractions every 5 minutes or less for one hour. Time your contractions from the beginning of one to the beginning of the next Pressure: Pressure in your vagina or lower abdomen that may feel like the baby is pushing down Period Like Cramps: Period-like cramps or low dull backache that may come and go Cramps/Diarrhea: Abdominal cramps that may be accompanied by diarrhea Gush of Fluid/Blood: Gush of fluid or blood from your vagina (it is normal to have spotting after vaginal exam or intercourse) Vaginal Discharge: Change in the type or amount of vaginal discharge Decreased Movement: Your baby is not moving as much as usual- 4 movements in 1 hour after drinking and resting on side Temperature: Temperature greater than 100.0(F) orally
--- NOTE | 2016-10-02 10:45 | Antepartum Discharge Summary ---
Antepartum DC Datetime Report Generated by CPN: 10/02/2016 10:45 DIET/ACTIVITY/RESTRICTIONS Diet: Regular (10/02/2016 08:38:Frank Mariposa, RN) Activity: Normal Activity (10/02/2016 08:38:Frank Mariposa, RN) Activity Restrictions: No Sexual Activity; Nothing in Vagina - Beasley, Tampons, Douche (10/02/2016 08:38:Frank Mariposa, RN) TEACHING/INSTRUCTIONS/REFERRALS Instructions Given To: PT (10/02/2016 08:38:Frank Monge RN) Instructions Understood: Patient Verbalized Understanding; Support Person Verbalized Understanding (10/02/2016 08:38:Frank Monge RN) Referrals: None (10/02/2016 08:38:Frank Monge RN) Educational Materials- Other: Labor Signs Kick Counts (10/02/2016 08:38:Frank Monge RN) DISCHARGE INFORMATION Discharged AMA: No (10/02/2016 08:38:Frank Monge RN) Discharge Date/Time: 10/02/2016 08:40 (10/02/2016 08:38:Frank Monge RN) Discharged To: Home (10/02/2016 08:38:Frank Monge RN) Discharge Provider Name: HAMMAD CNM (10/02/2016 08:38:Frank Monge RN) Accompanied By: (10/02/2016 08:38:Frank Monge RN) Discharge Method: Ambulatory (10/02/2016 08:38:Frank Monge RN) Condition: Stable (10/02/2016 08:38:Frank Monge RN) FOLLOW UP INFORMATION Follow Up With: [facility] (10/02/2016 08:38:Frank Monge RN) Follow Up On: As Scheduled (10/02/2016 08:38:Frank Monge RN) Follow Up Phone Number: [facility] - (10/02/2016 08:38:Frank Monge RN) Comments: suction roller agrees with discharge, pt agrees with discharge. Pt d/c home for False labor, Pt understands s/s to report, when to return to hospital for evaluation, to keep scheduled appointments with [facility]. Discharged in no distress, no complaints, ambulates without difficulty. (10/02/2016 08:38:Frank Monge RN) GENERAL INSTR-CALL PROVIDER IF: Contractions: Contractions or cramps become more frequent than 8 in one hour or 4 in 20 minutes; Regular painful contractions every 5 minutes or less for one hour. Time your contractions from the beginning of one to the beginning of the next (10/02/2016 08:38:Frank Monge RN) Pressure: Pressure in your vagina or lower abdomen that may feel like the baby is pushing down (10/02/2016 08:38:Frank Monge RN) Period Like Cramps: Period-like cramps or low dull backache that may come and go (10/02/2016 08:38:Frank Monge RN) Cramps/Diarrhea: Abdominal cramps that may be accompanied by diarrhea (10/02/2016 08:38:Frank Mogne RN) Gush of Fluid/Blood: Gush of fluid or blood from your vagina (it is normal to have spotting after vaginal exam or intercourse) (10/02/2016 08:38:Frank Monge RN) Vaginal Discharge: Change in the type or amount of vaginal discharge (10/02/2016 08:38:Frank Monge RN) Decreased Movement: Your baby is not moving as much as usual- 4 movements in 1 hour after drinking and resting on side (10/02/2016 08:38:Frank Monge RN) Temperature: Temperature greater than 100.0(F) orally (10/02/2016 08:38:Frank Monge RN) Hypertension Signs/Symptoms: Severe headache which is not relieved 30 minutes after taking Tylenol(Acetaminophen); Blurry vision or spots before your eyes; Severe heartburn or pain on the upper right side of your abdomen that is not relieved by an antacid; Increased swelling in your face, hands or feet (10/02/2016 08:38:Frank Monge RN) Urinary Output: Decreased urinary output or dark colored urine (10/02/2016 08:38:Frank Monge RN) ADDITIONAL INSTRUCTIONS N/V [place]/Crackers: Keep dry toast/crackers with you to munch on (10/02/2016 08:38:Frank Monge RN) N/V Frequent Meals: Eat small frequent meals (10/02/2016 08:38:Frank Monge RN) N/V Empty Stomach: Try to keep something in your stomach (don't let your stomach get empty) (10/02/2016 08:38:Frank Monge RN) N/V Time Getting Up: Take your time getting up (10/02/2016 08:38:Frank Monge RN) N/V Avoid Smells: Avoid smells that make you feel sick (10/02/2016 08:38:Frank Monge RN) Travel Seatbelts: Wear seatbelts or safety/lap belts (10/02/2016 08:38:Frank Monge RN) Travel Walk Frequently: Walk frequently, every 1-2 hours (10/02/2016 08:38:Frank Monge RN) Travel Comfort Clothes: Wear clothing that does not constrict and comfortable shoes (10/02/2016 08:38:Frank Monge RN) Travel Light Snack: Keep a light snack (e.g. dry crackers) with you at all times to prevent nausea (10/02/2016 08:38:Frank Monge RN) Travel Hydration: Drink plenty of water, low sodium and noncaffeinated drinks (10/02/2016 08:38:Frank Monge RN) Travel Medications: DO NOT take any medication that is not approved by your physician first (10/02/2016 08:38:Frank Monge RN) Travel PN Records: Always keep a copy of your medical record with you just in case (10/02/2016 08:38:Frank Monge RN) Edema Avoid Standing: Avoid standing for long periods, keep legs up when you can (10/02/2016 08:38:Frank Monge RN) Edema Rest on Side: When resting, lie on your side (left is best) (10/02/2016 08:38:Frank Monge RN) Edema Limit Sodium: Limit the amount of salty foods you eat (10/02/2016 08:38:Frank Monge RN) Edema Support Hose: Try to wear support hose as much as possible (10/02/2016 08:38:Frank Monge RN) Exercise Overheating: Avoid situations that would cause you to become overheated (10/02/2016 08:38:Frank Monge RN) Exercise Weather: Exercise outdoors only if the weather is reasonable and not too hot (10/02/2016 08:38:Frank Monge RN) Exercise Exertion: Do not over exert yourself when you exercise (10/02/2016 08:38:Frank Monge RN) Exercise Hydration: Drink plenty of fluids, especially water (10/02/2016 08:38:Frank Monge RN) Exercise Support: Wear good support hose, bra and shoes when exercising (10/02/2016 08:38:Frank Monge RN) Varicose Veins Instructions: Do not stand for long periods of time (10/02/2016 08:38:Frank Monge RN) Varicose Veins Elevate Sit: Try to keep your legs elevated when you are sitting (10/02/2016 08:38:Frank Monge RN) Varicose Veins Elevate Lying: When lying down, keep your legs elevated (10/02/2016 08:38:Frank Monge RN) Varicise Veins Non Binding: When wearing stockings or socks, make sure they are not too tight and bind your legs (10/02/2016 08:38:Frank Monge RN) Varicose Veins Support: Wear support hose/stockings at all times (10/02/2016 08:38:Frank Monge RN) Varicose Veins Periodic Move: If you have a job where you sit a lot, get up periodically and walk around (10/02/2016 08:38:Frank Monge RN)
--- NOTE | 2016-10-02 10:45 | L&D General Admission ---
General Admit Datetime Report Generated by CPN: 10/02/2016 10:45 INFORMATION Patient Age: 36 (09/11/2016 11:50:QS system process) EDC: 10/23/2016 00:00 (09/11/2016 11:54:Aura Dill RN) : 2 (09/11/2016 11:54:Aura Dill RN) Para: 1 (09/11/2016 12:03:Aura Dill RN) Para: 1 (09/11/2016 11:54:Aura Dill RN) Term: 1 (09/11/2016 11:54:Aura Dill RN) : 0 (09/11/2016 11:54:Aura Dill RN) Spontaneous Abortions: 0 (09/11/2016 11:54:Aura Dill RN) Induced Abortions: 0 (09/11/2016 11:54:Aura Dill RN) Livin (09/11/2016 11:54:Aura Dill RN) Cesareans: 0 (09/11/2016 11:54:Aura Dill RN) VBACs: 0 (09/11/2016 11:54:Aura Dill RN) Ectopic: 0 (09/11/2016 11:54:Aura Dill RN) Multiple Births: 0 (09/11/2016 11:54:Aura Dill RN) Baby, Number in Womb: 1 (09/11/2016 12:03:Aura Dill RN) Baby, Number in Womb: 1 (09/11/2016 11:54:Aura Dill RN) CARE Primary Vp Rheumatology: [facility] (09/11/2016 11:54:Aura Dill RN) Adequate Care: Yes (09/11/2016 11:54:Aura Dill RN) Height (in): 68 (10/01/2016 22:09:QS system process) Height (in): 68 (10/01/2016 21:08:QS system process) Height (in): 68 (10/01/2016 18:22:QS system process) ALLERGIES Medication Allergy: No (09/11/2016 11:54:Frank Monge RN) Medication Allergies: No Known Allergies (08/07/2016) (09/11/2016 11:50:QS system process) Latex Allergy: No Latex Allergies (09/11/2016 11:54:Frank Monge RN) COMMUNICATION Primary Language: Tongan (09/11/2016 11:54:Aura Dill RN) Medical Tx Preferred Language: Tongan (09/11/2016 11:54:Aura Dill RN) Communication Barrier(s): None (09/11/2016 11:54:Aura Dill RN) DEMOGRAPHICS Address: [address] [place] [address] [place] [address] (09/11/2016 11:50:QS system process) Zipcode: [id number] (09/11/2016 11:50:QS system process) Home (09/11/2016 11:50:QS system process) Work (09/11/2016 11:50:QS system process) SSN: [id number] (09/11/2016 11:50:QS system process) Next of Kin Name: MERCEDEZ ABERNATHY (09/11/2016 11:50:QS system process) Next of Kin (09/11/2016 11:50:QS system process) Next of Kin Relationship: SPO (09/11/2016 11:50:QS system process) Date of : 1980 (09/11/2016 11:50:QS system process) Marital Status: (09/11/2016 11:50:QS system process) Sex: Female (09/11/2016 11:50:QS system process) Race: (09/11/2016 11:50:QS system process) Ethnicity: Non- or (09/11/2016 11:50:QS system process) Jewish: None (09/11/2016 11:50:QS system process) VACCINE HISTORY Tdap Vaccine: Yes (09/11/2016 11:54:Frank Monge RN) Tdap Date: 07/31/16 (09/11/2016 11:54:Frank Monge RN) Pain Management Plans: Epidural (09/11/2016 11:54:Frank Monge RN) Support Person Relationship: (09/11/2016 11:54:Frank Monge RN) LABS Blood Type: A Negative (09/11/2016 11:54:Frank Monge RN) Antibody Screen: Negative (09/11/2016 11:54:Frank Monge RN) Rho(G) this : Yes (09/11/2016 11:54:Frank Monge RN) Date Rho(G) Given: 07/23/2016 (09/11/2016 11:54:Christy Chi RN) Hemoglobin: 10.7 L (10/01/2016 22:00:QS system process) Hematocrit: 33.5 L (10/01/2016 22:00:QS system process) MCV: 76 L (10/01/2016 22:00:QS system process) Group Beta Strep: Unknown (09/11/2016 11:54:Christy Chi RN) RPR/VDRL: Nonreactive (09/11/2016 11:54:Frank Monge RN) HIV Exposure Test: Negative (09/11/2016 11:54:Frank Monge RN) Hepatitis B: Negative (09/11/2016 11:54:Frank Monge RN) Rubella: Immune (09/11/2016 11:54:Frank Monge RN) OB/PREVIOUS HISTORY Previous Procedures: Ultrasound (09/11/2016 11:54:Frank Monge RN) Current Procedures: Ultrasound (09/11/2016 11:54:Frank Monge RN) History of Gestational Diabetes: Yes (09/11/2016 11:54:Frank Monge RN) Comments Obstetrical History: G1 2009 38Wks 6.9# M [employer] G2 Current , AMA, GDM (09/11/2016 11:54:Frank Monge RN)
== END 2016-10-02 08:41 | disposition home or self-care (01) ==
LOC: LC 18:09 → UNDOADMIN 21:01 → LR 21:01 → UNDODISIN 10-02 08:41 → LC 10-02 08:41
PROVIDERS: ATTEND Specialist
PROC: 4A1HXCZ Monitoring of Products of Conception, Cardiac Rate, External Approach (ICD-10-PCS; principal; 2016-10-01)
DX: O47.03 False labor before 37 completed weeks of gestation, third trimester (principal); O09.523 Supervision of elderly multigravida, third trimester; Z3A.36 36 weeks gestation of pregnancy
CPT/HCPCS: 59025; 84112; 86900; 86901; 36415; 86870; 86850; 85025; 86592; 80053; 81001; 80307; J2540 ×2